=== PATIENT | female | born 2000 | race Caucasian/White ===

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

== ENCOUNTER 2020-01-23 08:53 | Emergency (ER) | payer SELFPAY ==
--- NOTE | 2020-01-23 09:15 | EDM.PDOC ---
ED HPI GENERAL MEDICAL PROBLEM - General Chief Complaint: Skin Complaint Stated Complaint: CYST Time Seen by Provider: 01/23/20 08:56 Source of Information: Reports: Patient, Old Records History Limitations: Reports: No Limitations - History of Present Illness INITIAL COMMENTS - FREE TEXT/NARRATIVE: 19-year-old female past medical history of Bartholin cyst with recent ED visit o n 12/22 for incision and drainage. Presenting back to the emergency department with 2 to 3 days of left-sided labial swelling and pain, concerned that her Bartholin's abscess has recurred. Denies fever, chills, nausea, vomiting, or any other complaints. Past medical history: Reviewed, no additional pertinent history. Surgical history: Reviewed in system, no additional pertinent history. Social history: Reviewed in system, no additional pertinent history. Family history: Reviewed in system, no additional pertinent history. PHYSICAL EXAM Vital signs reviewed. Nursing notes reviewed. Constitutional: Awake, alert, non-distressed. Head: Normocephalic, atraumatic. Eyes: EOMI, conjunctiva normal, no discharge, no scleral icterus. Ears, Nose, Throat: External ears and nose normal, moist oral mucosa. Cardiovascular: 2+ radial pulse, capillary refill less than 2 seconds. Pulmonary: normal work of breathing, no accessory muscle use. Abdomen/GI: Soft, nontender, nondistended, no guarding or rigidity, no masses. : Significant amount of fluctuance to the left labia with an area of purulent drainage concerning for Bartholin's abscess. No associated or surrounding erythema or induration to suggest associated cellulitis. Chaperoned exam with Nicky Lazaro RN. Musculoskeletal: No deformities. Integumentary: Appropriate color for ethnicity, warm, dry, no pallor or jaundice, no rash. Neurologic: Alert, answering questions appropriately, normal speech, no facial droop, moving all extremities well. Psychiatric: Appropriate mood and affect, normal thought process. vaginal Pain Score (Numeric/FACES): 6 - Related Data Allergies Allergy/AdvReac Type Severity Reaction Status Date / Time No Known Allergies Allergy Verified 01/23/20 09:08 Home Meds: Home Meds Ibuprofen 600 mg PO Q6HR PRN #30 tablet 12/23/19 [Rx] traMADol [Ultram] 50 mg PO Q6H PRN #12 tab 12/23/19 [Rx] Acetaminophen [Acetaminophen Extra Strength] 500 - 1,000 mg PO Q6H PRN #30 tablet 01/23/20 [Rx] Cetirizine [ZyrTEC] 1 tab PO DAILY 01/23/20 [History] Ibuprofen 400 mg PO Q6H PRN #30 tablet 01/23/20 [Rx] Sulfamethoxazole/Trimethoprim [Bactrim Ds Tablet] 1 each PO BID 7 Days #14 tablet 01/23/20 [Rx] Past Medical History - Past Health History Medical/Surgical History: Denies Medical/Surgical History - Past Surgical History Female Surgical History: Reports: Other (See Below) Other Female Surgeries/Procedures: Bartholin Cyst Social & Family History - Family History Family Medical History: Noncontributory - Tobacco Use Smoking Status *Q: Never Smoker - Recreational Drug Use Recreational Drug Use: No ED ROS GENERAL - Review of Systems Review Of Systems: See Below ED EXAM, RENAL/ - Physical Exam Exam: See Below ED I&D PROCEDURES - I&D Site: Left Bartholin gland abscess Skin prep: Saline Local anesthesia - Lidocaine (Xylocaine): 1% Plain Local Anesthetic Volume: 4cc Area Incised With: 11 Blade Drainage: Purulent Probed to Break Up Loculations: No Packed With: Other (Word catheter) Complications: No Course - Vital Signs Text/Narrative:: Exam consistent with a left-sided Bartholin's gland abscess. Verbal consent obtained for incision and drainage. Anesthetized with 1% lidocaine. A small scalpel incision was made with copious purulent drainage. Wound culture was se nt. Pus was manually expressed until none remained. Word catheter was placed. Inflated with 4 mL of sterile water. Catheter noted to be in good position. Stable to discharge home with outpatient C[employer] [facility]PR[employer] follow-up in several weeks. Prescribed a one-week course of Bactrim DS along with Tylenol and Motrin. Strict ED return precautions were provided. All questions answered prior to departure. Last Recorded V/S: Last Vital Signs Temp 36.6 C 10/11/20 09:59 Pulse 90 01/23/20 09:59 Resp 16 01/23/20 09:59 BP 130/67 01/23/20 09:59 Pulse Ox 97 01/23/20 09:59 - Orders/Labs/Meds Orders: Active Orders 24 hr Category Date Time Status CULTURE WOUND [RM] Stat Lab 01/23/20 09:44 Received Meds: Medications Discontinued Medications Generic Name Dose Route Start Last Admin Trade Name Nikko PRN Reason Stop Dose Admin Lidocaine HCl 5 ml 01/23/20 09:29 01/23/20 09:48 Xylocaine-Mpf 1% INJECT 01/23/20 09:30 5 ml ONETIME ONE Administration Sterile Water 10 ml 01/23/20 09:30 01/23/20 09:48 Sterile Water For Injection INJECT 01/23/20 09:31 10 ml ONETIME ONE Administration Departure - Departure Time of Disposition: 09:46 Disposition: Home, Self-Care 01 Condition: Good Clinical Impression: Bartholin's gland abscess - Discharge Information *PRESCRIPTION DRUG MONITORING PROGRAM REVIEWED*: Not Applicable *COPY OF PRESCRIPTION DRUG MONITORING REPORT IN PATIENT MOR: Not Applicable Prescriptions: Acetaminophen [Acetaminophen Extra Strength] 500 - 1,000 mg PO Q6H PRN #30 tablet PRN Reason: Pain (Mild 1-3) Sulfamethoxazole/Trimethoprim [Bactrim Ds Tablet] 1 each PO BID 7 Days #14 tablet Ibuprofen 400 mg PO Q6H PRN #30 tablet PRN Reason: Pain (Mild 1-3) Instructions: Skin Abscess, [id number] Referrals: [facility] [Provider Group] - 2 Weeks (For follow-up of bartholin's gland abscess and Word catheter placement.) Forms: ED Department Discharge Additional Instructions: You were seen in the emergency department for a Bartholin gland abscess. This was drained in the emergency department. We placed a catheter in the abscess site to help it drain. Leave this in place. Your [facility] clinic will remove it in 4 to 6 weeks. I prescribed some antibiotics to the pharmacy, be sure to finish the entire bottle. Warning signs to come back to the ER include worsening pain or swelling, fever of 100.4 or higher, chills, vomiting, or any other new or concerning symptoms. Please return the emergency department immediately if your symptoms worsen or if you feel worse. Thank you for choosing the [facility] emergency department in [place] for your medical needs today. It was a pleasure caring for you. The following information is given to patients seen in the emergency department who are being discharged. This information is to outline your options for follow-up care. We provide all patients seen in our emergency department with a follow-up referral. The need for follow-up, as well as the timing and circumstances, are variable depending upon the specifics of your emergency department visit. If you don't have a primary care physician on staff, we will provide you with a referral. We always advise you to contact your personal physician following an emergency department visit to inform them of the circumstance of the visit and for follow-up with them and/or the need for any referrals to a consulting specialist. The emergency department will also refer you to a specialist when appropriate. This referral assures that you have the opportunity for follow-up care with a specialist. All of these measure are taken in an effort to provide you with optimal care, which includes your follow-up. Under all circumstances we always encourage you to contact your private physician who remains a resource for coordinating your care. When calling for follow-up care, please make the office aware that this follow-up is from your recent emergency room visit. If for any reason you are refused follow-up, please contact the [facility] Emergency Department at and asked to speak to the emergency department charge nurse. If you do not have a primary care physician that is caring for you, you can contact these clinics below to set up an appointment to establish care: [facility] - Primary Care [address] [place] [address] [facility] [address] [place] [address] Sepsis Event Note (ED) - Evaluation Sepsis Screening Result: No Definite Risk - Focused Exam Vital Signs: Vital Signs Temp Pulse Resp BP Pulse Ox 01/23/20 09:59 36.6 C 90 16 130/67 97 01/23/20 09:05 36.5 C 110 H 16 155/85 H 98 - My Orders Last 24 Hours: My Active Orders 01/23/20 09:44 CULTURE WOUND [RM] Stat - Assessment/Plan Last 24 Hours: My Active Orders 01/23/20 09:44 CULTURE WOUND [RM] Stat
[2020-01-23] MEDS ORDERED: Water For Injection, Sterile 20 ML SDV INJECT ONE (09:30)
== END 2020-01-23 09:56 | disposition home or self-care (01) ==
LOC: MW.ED 08:53
DX: N75.1 Abscess of Bartholin's gland (principal)
CPT/HCPCS: 56420; 87070; 99283; J2001; 99282

== ENCOUNTER 2021-04-17 06:38 | Day surgery (SDC) | payer BC ==
[2021-04-17] MEDS ORDERED: Lactated Ringers 1,000 ML IV SCH (07:15)
[2021-04-17] MEDS ORDERED: Lidocaine 1% with EPINEPHrine 1:100,000 20 ML MDV ONE (07:20)
[2021-04-17] MEDS ORDERED: Naloxone 0.4 MG/ML SDV IVPUSH PRN (07:22)
[2021-04-17] MEDS ORDERED: Ondansetron 4 MG/2 ML SDV IVPUSH PRN (07:22)
[2021-04-17] MEDS ORDERED: fentaNYL 100 MCG/2 ML SDV IVPUSH PRN (07:22)
[2021-04-17] MEDS ORDERED: Albuterol 0.083% 2.5 MG/3 ML Neb Soln NEB PRN (07:22)
[2021-04-17] MEDS ORDERED: HYDROmorphone 1 MG/ML Syringe IVPUSH PRN (07:22)
[2021-04-17] MEDS ORDERED: Metoclopramide 10 MG/2 ML SDV IVPUSH PRN (07:22)
[2021-04-17] MEDS ORDERED: Propofol 200 MG/20 ML SDV ONE (07:26)
[2021-04-17] MEDS ORDERED: Midazolam 1 MG/ML 2 ML SDV ONE (07:26)
[2021-04-17] MEDS ORDERED: Dexmedetomidine 200 MCG/2 ML SDV ONE (07:26)
[2021-04-17] MEDS ORDERED: Water For Injection, Sterile 20 ML ONE (07:27)
[2021-04-17] MEDS ORDERED: Ondansetron 4 MG/2 ML SDV ONE (08:15)
[2021-04-17] MEDS ORDERED: Ketorolac 30 MG/ML SDV ONE (08:15)
[2021-04-17] MEDS ORDERED: Dexamethasone 4 MG/ML 5 ML MDV ONE (08:15)
[2021-04-17] MEDS ORDERED: ePHEDrine 50 MG/ML SDV ONE (08:21)
[2021-04-17] MEDS ORDERED: fentaNYL 100 MCG/2 ML SDV ONE (08:37)
[2021-04-17] MEDS ORDERED: Benzocaine/Menthol 20%-0.5% Spray 78 GM Cannister ONE (09:43)
== END 2021-04-17 10:10 | disposition home or self-care (01) ==
LOC: MW.SDS 06:38
PROVIDERS: ATTEND Obstetrics & Gynecology
DX: N90.7 Vulvar cyst (principal); N39.0 Urinary tract infection, site not specified; Z79.899 Other long term (current) drug therapy; Z98.890 Other specified postprocedural states
CPT/HCPCS: 00940; 36415; 84702; 85027; A9270-GY; J1100; J1885; J2250; J2405; J2704; J3010; J7120

== ENCOUNTER 2023-03-25 06:35 | Day surgery (SDC) | payer BC ==
[2023-03-25] MEDS ORDERED: Naloxone 0.4 MG/ML SDV IVPUSH PRN (07:03)
[2023-03-25] MEDS ORDERED: Ondansetron 4 MG/2 ML SDV IVPUSH PRN (07:03)
[2023-03-25] MEDS ORDERED: HYDROmorphone 1 MG/ML Syringe IVPUSH PRN (07:03)
[2023-03-25] MEDS ORDERED: droPERidol 5 MG/2 ML SDV IVPUSH PRN (07:03)
[2023-03-25] MEDS ORDERED: Morphine 2 MG/ML SYRINGE IVPUSH PRN (07:03)
[2023-03-25] MEDS ORDERED: Metoclopramide 10 MG/2 ML SDV IVPUSH PRN (07:03)
[2023-03-25] MEDS ORDERED: Albuterol 0.083% 2.5 MG/3 ML Neb Soln NEB PRN (07:03)
[2023-03-25] MEDS ORDERED: Dexamethasone 4 MG/ML 5 ML MDV ONE (07:15)
[2023-03-25] MEDS ORDERED: Ketorolac 30 MG/ML SDV ONE (07:15)
[2023-03-25] MEDS ORDERED: Lidocaine 2% 5 ML SDV ONE (07:15)
[2023-03-25] MEDS ORDERED: Lactated Ringers 1,000 ML IV SCH (07:15)
[2023-03-25] MEDS ORDERED: Propofol 200 MG/20 ML SDV ONE ×2 (07:15→08:32)
[2023-03-25] MEDS ORDERED: fentaNYL 100 MCG/2 ML SDV ONE (07:15)
[2023-03-25] MEDS ORDERED: propofoL 50 ML ONE (07:52)
[2023-03-25] MEDS ORDERED: Lidocaine 1% 20 ML MDV ONE (08:05)
[2023-03-25] MEDS: fentaNYL 50 MCG/ML SDV IVPUSH PRN ×2 (09:15→09:30)
== END 2023-03-25 10:31 | disposition home or self-care (01) ==
LOC: MW.SDS 06:35
PROVIDERS: ATTEND Obstetrics & Gynecology
DX: N75.0 Cyst of Bartholin's gland (principal); N89.8 Other specified noninflammatory disorders of vagina; F32.A Depression, unspecified; F41.9 Anxiety disorder, unspecified; E66.9 Obesity, unspecified; Z68.42 Body mass index [BMI] 45.0-49.9, adult; Z79.899 Other long term (current) drug therapy
CPT/HCPCS: 00940; J0131; J1100; J1885; J2704; J3010; J3490; J7030; J7120